=== PATIENT | female | born 1940 | race Caucasian/White ===

== ENCOUNTER 2018-06-17 22:26 | Emergency (ER) | payer MEDICARE, BC ==
[~2018-06-17] VITALS: Ht 157.5 cm; Wt 81.4 kg
[2018-06-17 22:30] VITALS: TEMP 98.5
[2018-06-17 22:52] LABS: BASO % 0.4 % (0.0-2.0); EOS # 0.3 (0.0-0.7); EOS % 3.7 % (0-4.0); GRAN # 4.6 (1.4-6.5); GRAN % 55.2 % (42.2-75.2); HEMATOCRIT 47.4 % (37.0-47.0); HEMOGLOBIN 15.9 g/dl (12.5-16.0); LYMPH # 2.5 (1.2-3.4); LYMPH % 29.7 % (20.0-51.0); MEAN CELL VOLUME 91 fl (80.0-100.0); MEAN CORPUSCULAR HEMOGLOBIN 31 pg (27.0-31.0); MEAN CORPUSCULAR HGB CONC 34 g/dl (33.0-37.0); MEAN PLATELET VOLUME 9.9 fl (7.4-10.4); MONO # 0.9 (0.1-0.6); MONO % 10.6 % (1.7-9.3); PLATELET COUNT 341 K/mm3 (130-400); RED BLOOD COUNT 5.21 M/mm3 (4.10-5.30); REDCELL DISTRIBUTION WIDTH-CV 13.3 % (11.5-14.5)
[2018-06-17 22:58] LABS: INR 1.1 (0.8-3.0)
[2018-06-17] MEDS ORDERED: SYNTHROID0.1 MG/TAB PO (23:19)
[2018-06-17] MEDS ORDERED: SYNTHROID0.112 MG/T PO (23:19)
[2018-06-17] MEDS ORDERED: ZANTAC 150MG T150 MG PO (23:20)
[2018-06-17] MEDS ORDERED: NORVASC 5MG5 MG/TAB PO (23:20)
[2018-06-17] MEDS ORDERED: COZAAR 50MG50 MG/TAB PO (23:21)
[2018-06-17 23:32] LABS: ALANINE AMINOTRANSFERASE 33 U/L (9-52); ALBUMIN 4.3 gm/dL (3.5-5.0); ALKALINE PHOSPHATASE 132 U/L (50-136); ANION GAP 10 mmol/L (7-16); AST,SGOT 42 U/L (15-37); BILIRUBIN,TOTAL 0.7 mg/dL (0.0-1.0); BLOOD UREA NITROGEN 12 mg/dL (7-17); CALCIUM 9.7 mg/dL (8.4-10.2); CARBON DIOXIDE 27 mmol/L (22-30); CHLORIDE 100 mmol/L (98-107); CREATININE, serum 0.86 mg/dL (0.52-1.25); GLUCOSE 116 mg/dL (74-106); POTASSIUM 3.1 mmol/L (3.4-5.0); SODIUM 138 mmol/L (137-145); TOTAL PROTEIN 7.8 gm/dL (6.4-8.2)
[2018-06-17 23:44] LABS: TROPONIN-I < 0.012 ng/mL (0.000-0.035)
[2018-06-18] MEDS ORDERED: K-DUR20 MEQ PO (01:33)
[2018-06-18 01:55] VITALS: BP 155/86; PULSE 100
== END 2018-06-18 01:55 | disposition home or self-care (01) ==
LOC: COL.ER 22:26
PROVIDERS: Emergency Medicine
DX: R55 Syncope and collapse (principal); R19.7 Diarrhea, unspecified; E86.0 Dehydration; K21.9 Gastro-esophageal reflux disease without esophagitis; E03.9 Hypothyroidism, unspecified; Z90.49 Acquired absence of other specified parts of digestive tract; Z90.89 Acquired absence of other organs; Z90.710 Acquired absence of both cervix and uterus
CPT/HCPCS: J7030

== ENCOUNTER 2021-06-21 15:51 | Emergency (ER) | payer OTHER, MEDICARE, BC ==
[~2021-06-21] VITALS: Ht 157.5 cm; Wt 79.5 kg
[~2021-06-21 15:51] MED LIST: COZAAR 50MG50 MG/TAB PO; K-DUR20 MEQ PO; NORVASC 5MG5 MG/TAB PO; SYNTHROID0.1 MG/TAB PO; SYNTHROID0.112 MG/T PO; ZANTAC 150MG T150 MG PO
[2021-06-21 15:59] VITALS: TEMP 98.1
[2021-06-21 18:05] VITALS: BP 176/95; PULSE 89
== END 2021-06-21 18:05 | disposition home or self-care (01) ==
LOC: COL.ER 15:51
DX: S20.20XA Contusion of thorax, unspecified, initial encounter (principal); S50.11XA Contusion of right forearm, initial encounter; S80.01XA Contusion of right knee, initial encounter; S60.051A Contusion of right little finger without damage to nail, initial encounter; I10 Essential (primary) hypertension; E89.0 Postprocedural hypothyroidism; Z79.890 Hormone replacement therapy; Z79.899 Other long term (current) drug therapy; V43.62XA Car passenger injured in collision with other type car in traffic accident, initial encounter